=== PATIENT | female | born 1985 | race Caucasian/White ===

== ENCOUNTER 2019-09-23 14:16 | Emergency (ER) | payer SELFPAY ==
[~2019-09-23] VITALS: Ht 162.6 cm; Wt 65.0 kg
[2019-09-23] MEDS ORDERED: KETOROLAC 60MG/2ML VIAL IM ONE (18:45)
[2019-09-23 19:51] LABS: CLARITY URINE CLOUDY (CLEAR); COLOR URINE YELLOW (YELLOW); KETONES URINE 1+ (NEGATIVE); LEUKOCYTE ESTERASE URINE 1+ (NEGATIVE); NITRITE URINE POSITIVE (NEGATIVE); OCCULT BLOOD URINE 3+ (NEGATIVE); PH URINE 5.5 (4.5-8.0); PROTEIN URINE 1+ (NEGATIVE)
[2019-09-23 21:37] VITALS: BP 125/72
== END 2019-09-23 21:46 | disposition home or self-care (01) ==
LOC: ER 14:16
DX: R07.89 Other chest pain (principal); R03.0 Elevated blood-pressure reading, without diagnosis of hypertension
CPT/HCPCS: 71045; 81003; 81025; 93005; 96372; 99284; J1885

== ENCOUNTER 2019-10-07 12:06 | Emergency (ER) | payer SELFPAY | END 2019-10-07 12:44 | disposition left against medical advice (07) | LOC: ER 12:06 | DX: Z53.21 Procedure and treatment not carried out due to patient leaving prior to being seen by health care provider (principal) ==

== ENCOUNTER 2019-10-08 07:09 | Emergency (ER) | payer SELFPAY ==
[~2019-10-08] VITALS: Ht 154.9 cm; Wt 54.0 kg
[2019-10-08 07:45] VITALS: BP 119/70
[2019-10-08] MEDS ORDERED: ALBUTEROL (0.083%) 2.5MG/3ML NEB HHN STA (08:18)
[2019-10-08 08:51] LABS: CLARITY URINE CLOUDY (CLEAR); COLOR URINE DARK YELLOW (YELLOW); KETONES URINE TRACE (NEGATIVE); LEUKOCYTE ESTERASE URINE 1+ (NEGATIVE); NITRITE URINE NEGATIVE (NEGATIVE); OCCULT BLOOD URINE 3+ (NEGATIVE); PROTEIN URINE 1+ (NEGATIVE); SPECIFIC GRAVITY URINE 1.021 (1.005-1.030)
== END 2019-10-08 09:17 | disposition home or self-care (01) ==
LOC: ER 07:09
DX: J20.8 Acute bronchitis due to other specified organisms (principal)
CPT/HCPCS: 71045; 81003; 81025; 93005; 94640; 99285; J7610; Z7610